=== PATIENT | male | born 2005 | race Hispanic/Latino ===

== ENCOUNTER 2023-03-18 17:35 | Emergency (ER) | payer MEDICAID | END 2023-03-18 19:47 | disposition left against medical advice (07) | LOC: EDH 17:35 | DX: R07.89 Other chest pain (principal); Z53.21 Procedure and treatment not carried out due to patient leaving prior to being seen by health care provider ==

== ENCOUNTER 2025-04-16 20:03 | Emergency (ER) | payer MEDICAID, OTHER ==
[~2025-04-16] VITALS: Ht 167.6 cm; Wt 117.9 kg
[2025-04-16 20:22] LABS: BASOPHILS # (AUTO) 0.03 K/uL (0.00-0.20); BASOPHILS % (AUTO) 0.2 % (0.0-5.0); EOSINOPHILS # (AUTO) 0.01 K/uL (0.00-0.70); EOSINOPHILS % (AUTO) 0.1 % (0.0-8.0); HEMATOCRIT 43.8 % (42-54); IMMATURE GRANULOCYTE ABSOLUTE 0.07 K/uL (0-1); LYMPHOCYTES # (AUTO) 1.9 K/uL (1.0-4.8); LYMPHOCYTES % (AUTO) 12.7 % (21.0-51.0); MEAN CORPUSCULAR HEMOGLOBIN 28.4 pg (27.0-33.0); MEAN CORPUSCULAR VOLUME 83.4 fL (80-100); MONOCYTES # (AUTO) 0.9 K/uL (0.1-1.0); MONOCYTES % (AUTO) 6.3 % (3.0-13.0); NEUTROPHILS # (AUTO) 11.7 K/uL (1.8-7.7); NEUTROPHILS % (AUTO) 80.2 % (40.0-77.0); PLATELET COUNT (AUTO) 317 K/uL (130-400); RED BLOOD CELL COUNT(AUTO) 5.25 MIL/uL (4.50-6.20); RED CELL DISTRIBUTION WIDTH 13.9 % (11.0-15.5); WHITE BLOOD COUNT (AUTO) 14.6 K/uL (4.8-10.8)
[2025-04-16 20:30] LABS: CARBON DIOXIDE 25 mmol/L (21-32); CHLORIDE 102 mmol/L (101-111); CREATININE 1.1 mg/dL (0.5-1.3); GLOMERULAR FILTR. RATE CALC 98 mL/min (>90); GLUCOSE,RANDOM 108 mg/dL (70-105); POTASSIUM 3.6 mmol/L (3.5-5.1); SODIUM SERUM 139 mmol/L (136-145); UREA NITROGEN, BLOOD 16 mg/dL (7-18)
[2025-04-16 20:34] LABS: ACETAMINOPHEN < 1 mcg/mL (10-29); ALCOHOL, BLOOD < 3 mg/dL (0-10); SALICYLATE 3.4 mg/dL (2.8-20.0)
--- NOTE | 2025-04-16 20:39 | ERN ---
ED Note History of Present Illness Stated Complaint: SENT FROM [facility] FOR MEDICAL CLEARANCE Chief Complaint: Suicidal Ideation Time Seen by MD: 20:05 Dictation: This is a 19-year-old male who presented to [facility] with suicidal ideations he was transferred to [facility] Emergency room for medical clearance. He indicated that he has been having suicidal ideations but without a plan. He admits to feeling hopeless. He does use heroin 2 times daily and has used it this morning. He also did crack cocaine 1 hour prior to presentation. He was reporting crawling sensation of ants. No homicidal ideations no visual hallucinations. Temperature 98.8 pulse 84 respirations 16 blood pressure 123/79 with a pulse oximetry of 96% on room air Chronic medical problems include gastritis and depression Allergies: Coded Allergies: No Known Drug Allergies (Unverified Allergy, Unknown, 04/16/25) Past Medical History Past Medical History: Depression, Other Additional Past Medical Hx: GASTRITIS Surgical History: Other Surgical History Other: BOWEL RESECTION AND RE-ANASTOMOSIS Social History: Drugs (Heroin and crack cocaine), ETOH RN Note Reviewed/Agreed w/PFSH: Yes Review of System Dictation Constitutional: Negative for fever,chills, and weight loss Eyes: Negative for injury, pain,redness, and discharge ENT: Negative for injury,pain or swelling Cardiovascular: Negative for chest pain, palpitations, and edema Respiratory: Negative for shortness of breath, cough, and wheezing, Abdomen/GI: Negative for abdominal pain, nausea, vomiting, diarrhea, and constipation Back: Negative for injury and pain : Negative for injury, bleeding and discharge MS/Extremity: Negative for injury and deformity Skin: Negative for rash, and discoloration Neuro: Negative for headache, weakness, numbness, tingling, and seizure Psych: Positive for suicide ideation, negative homicidal ideation, and positive for tactile hallucinations Initial Vital Sign VS Vital Signs Date Time Temp Pulse Resp B/P (MAP) Pulse Ox O2 Delivery O2 Flow Rate FiO2 04/16/25 20:05 98.8 84 16 123/79 96 Room Air 0 04/16/25 20:52 21 Physical Exam Dictation General: awake, alert, NAD morbidly obese Head/Face: Normocephalic, atraumatic Eyes: PERRL, EOMI, vision at baseline ENT: oral cavity clear, TMs clear, no signs of infection Neck: Trachea midline, supple, no nuchal rigidity Cardiovascular: RRR, normal S1/S2, No MRGs, no JVD Respiratory: CTAB, no respiratory distress, No rales or wheezes Abdomen: Soft, non-tender, non-distended, normal bowel sounds, no guarding or rebound. Skin: Warm, dry, normal turgor, no rash, IV track wills MS/Extremity: Pulses equal, no cyanosis, neurovascular intact, FROM Neuro: COAx4, GCS 15, strength 5/5, CN 2-12 intact, normal cerebellar exam, normal gait, Psych: Normal behavior, mood, and affect normal Extremities-trace edema without any palpable cords, Homans sign is negative Results (Laboratory/Radiology) Laboratory/Radiology Laboratory Tests Test 04/16/25 20:17 04/16/25 20:40 White Blood Count 14.6 K/uL (4.8-10.8) H Red Blood Count 5.25 MIL/uL (4.50-6.20) Hemoglobin 14.9 g/dL (14.0-18.0) Hematocrit 43.8 % (42-54) Mean Corpuscular Volume 83.4 fL (80-100) Mean Corpuscular Hemoglobin 28.4 pg (27.0-33.0) Mean Corpuscular Hemoglobin Concent 34.0 g/dL (32.0-36.0) Red Cell Distribution Width 13.9 % (11.0-15.5) Platelet Count 317 K/uL (130-400) Mean Platelet Volume 10.5 fL (7.5-10.5) Immature Granulocyte % (Auto) 0.5 % (0-1) Neutrophils (%) (Auto) 80.2 % (40.0-77.0) H Lymphocytes (%) (Auto) 12.7 % (21.0-51.0) L Monocytes (%) (Auto) 6.3 % (3.0-13.0) Eosinophils (%) (Auto) 0.1 % (0.0-8.0) Basophils (%) (Auto) 0.2 % (0.0-5.0) Neutrophils # (Auto) 11.7 K/uL (1.8-7.7) H Lymphocytes # (Auto) 1.9 K/uL (1.0-4.8) Monocytes # (Auto) 0.9 K/uL (0.1-1.0) Eosinophils # (Auto) 0.01 K/uL (0.00-0.70) Basophils # (Auto) 0.03 K/uL (0.00-0.20) Absolute Immature Granulocyte (auto 0.07 K/uL (0-1) Nucleated Red Blood Cells 0.0 % (0.0-0.19) Sodium Level 139 mmol/L (136-145) Potassium Level 3.6 mmol/L (3.5-5.1) Chloride Level 102 mmol/L (101-111) Carbon Dioxide Level 25 mmol/L (21-32) Blood Urea Nitrogen 16 mg/dL (7-18) Creatinine 1.1 mg/dL (0.5-1.3) Glomerular Filtration Rate Calc 98 mL/min (>90) Random Glucose 108 mg/dL (70-105) H Total Calcium 8.9 mg/dL (8.5-10.1) Salicylates Level 3.4 mg/dL (2.8-20.0) Acetaminophen Level < 1 mcg/mL (10-29) L Serum Alcohol < 3 mg/dL (0-10) Urine Opiates Screen NEGATIVE (NEGATIVE) Urine Barbiturates Screen NEGATIVE (NEGATIVE) Urine Phencyclidine Screen NEGATIVE (NEGATIVE) Urine Amphetamines Screen NEGATIVE (NEGATIVE) Urine Benzodiazepines Screen POSITIVE (NEGATIVE) H Urine Cocaine Screen POSITIVE (NEGATIVE) H Urine Marijuana (THC) Screen POSITIVE (NEGATIVE) H Labs Reviewed?: Yes ED Course ED Course Orders Procedure Category Date Status Time Cbc With Differential LAB 04/16/25 Complete 20:04 Basic Metabolic Panel LAB 04/16/25 Complete 20:04 Alcohol, Blood LAB 04/16/25 Complete 20:04 Acetaminophen LAB 04/16/25 Complete 20:04 Salicylate LAB 04/16/25 Complete 20:04 Drug Screen Urine LAB 04/16/25 Complete 20:04 Lorazepam 0.5 Mg PHA 04/16/25 Complete (Ativan) 23:00 Current Medications Medications (Trade) Dose Ordered Sig/Jame Route PRN Reason Start Time Stop Time Status Last Admin Dose Admin Lorazepam (AtiVAN) 0.5 mg ONCE ONCE PO 04/16/25 23:00 04/16/25 23:01 DC 04/16/25 22:52 Vital Signs Date Time Temp Pulse Resp B/P (MAP) Pulse Ox O2 Delivery O2 Flow Rate FiO2 04/16/25 23:32 98.4 80 16 118/72 96 Room Air* 0 21 04/16/25 20:52 98.1 84 16 123/77 96 Room Air* 0 21 04/16/25 20:05 98.8 84 16 123/79 96 Room Air 0 We will perform diagnostic labs, and administer medications according to the patient's complaint. Once the results are available, will review and personally interpreted the labs to rule out any acute life-threatening emergency the trach require immediate intervention and treatment. I will then re-evaluate the patient after treatment and diagnostic exams have return to determine whether the patient requires any further testing, can safely be discharged home or need further admission to hospital for additional treatment and evaluation. Labs reviewed UDS is positive for benzos cocaine and THC CBC showed a mild leukocytosis at 14 but otherwise BNP 7 and rest of the CBC are all with a normal limits Medically cleared for behavioral health evaluation 1:04 a.m.-behavioral health specialist screened the patient and felt that he did not meet the criteria for inpatient stabilization but patient will be following up at [facility] for his drug abuse and addiction treatment. Medical Decision Making MDM MDM: Differential diagnosis: Depression, suicidal ideations secondary to recreational drug abuse, schizoaffective, bipolar Rationale: Tests considered and ordered secondary to shared decision making include: Previous outside records reviewed: Old ER visits. Risk of complication and/or morbidity or mortality of patient management: None Medications-Per medication reconciliation Need for hospitalization: Patient does not meet criteria for hospitalization. Need for emergency major/minor surgery: No There are no social concerns with this patient. Prescription drug management Prescriptions will include symptomatic care Patient's prior external medical records from other ER visits were reviewed by me as indicated. Prior testing and results from previous visits were reviewed. Prior tests were taken into account with medical decision making and resource utilization, independent historian/historians were used to obtain complete medical history. I independently interpreted the test that were performed, results were reviewed by me and considered findings on radiology if ordered. Medical management and examination interpretation discussions were had by me with other qualified healthcare professionals as indicated for the patient's care. Problem List Problem List: (1) Medical clearance for psychiatric admission (2) Heroin abuse (3) Cocaine abuse DX & DISP Disposition: Discharge Departure Impression: Primary Impression: Medical clearance for psychiatric admission Additional Impressions: Heroin abuse, Cocaine abuse Condition: Stable Additional Instructions: Patient and the caregiver have been informed of all the diagnostic tests and the imaging conducted during the today's visit to the emergency room and has verbalized understanding of the results I have personally reviewed and interpreted all diagnostic exams performed here in the ER today as well as the vital signs documented by the nursing staff. The patient is now being discha rged to home and should follow up with the primary care physician or the specialist as directed by the ER staff. Referrals: FRANCESCA ARANA (PCP) LINK ORTEGA MD April 16, 2025 20:39
[2025-04-16 21:01] LABS: AMPHET/METH SCREEN,URINE NEGATIVE (NEGATIVE); BARBITURATE SCREEN, URINE NEGATIVE (NEGATIVE); BENZODIAZEPINES SCREEN,URINE POSITIVE (NEGATIVE); CANNABINOID SCREEN,URINE POSITIVE (NEGATIVE); COCAINE SCREEN,URINE POSITIVE (NEGATIVE); OPIATE SCREEN,URINE NEGATIVE (NEGATIVE); PHENCYCLIDINE SCREEN,URINE NEGATIVE (NEGATIVE)
--- NOTE | 2025-04-16 22:44 | NUR ---
ANDRES CARROLL CONTACTED TO INITIATE SCREENING
[2025-04-16] MEDS: LORazepam 0.5 MG TABLET PO ONE (22:52)
--- NOTE | 2025-04-16 23:32 | NUR ---
Flaco ARTHUR, SCREENER WITH [facility]
--- NOTE | 2025-04-17 01:08 | NUR ---
PER KAMALA SOL, PATIENT DOES NOT MEET CRITERIA FOR INPATIENT SERVICES. PATIENT STATES HE STILL WOULD LIKE TO RECEIVE TREATMENT AT [facility], WILL FIND TRANSPORTATION TO THAT FACILITY. [facility] NOTIFIED PATIENT WILL BE RETURNING, SPOKE WITH CARY AT INTAKE.
[2025-04-17] MEDS: hydrOXYzine 25 MG TABLET PO ONE (01:11)
[2025-04-17 01:16] VITALS: BP 123/71; PULSE 76; RESP 16; TEMP 98; O2SAT 98
== END 2025-04-17 01:17 | disposition home or self-care (01) ==
LOC: EDH 20:03
DX: F14.10 Cocaine abuse, uncomplicated (principal); F11.10 Opioid abuse, uncomplicated; F32.A Depression, unspecified; Z98.890 Other specified postprocedural states
CPT/HCPCS: 99283; 80048; 80305; 85025; 36415; G0481